=== PATIENT | male | born 1930 | race Caucasian/White ===

== ENCOUNTER → 2016-05-24 | Outpatient (CLI) | payer MEDICARE, OTHER ==
[~2016-05-24] MED LIST: REGADENOSON INJ 0.4 MG/5 ML DISP.SYRIN IV ONE
--- NOTE | 2016-05-24 21:10 | DRAGON STRESS TEST REPORT ---
Intravenous Lexiscan Cardiolite stress test using single photon emmision computerized tomography. Date of procedure: 05/24/2016 Ordering Provider: Dr. Cele Benton. Primary care physician: Dr. Quinones. Indication: Dyspnea on exertion, in a patient with coronary artery disease.. Coronary risk factors: Age, and hypertension Resting EKG: Sinus Rhythm rate nonspecific T inversion in leads 1 and aVL Stress EKG: No changes of ischemia. The patient had no chest pain or discomfort, and there were no arrhythmias seen Reason for termination: Protocol. Conclusions: Normal EKG and hemodynamic response to IV Lexiscan. Nuclear data: At rest the patient was given 14.42 millicuries of technetium 99m sestamibi injected intravenously. As per protocol rest non gated SPECT images were obtained. Subsequently the patient was given intravenous Lexiscan at a dose of 0.4 mg in 5 mL intravenously, followed by flush with normal saline. Subsequently the stress dose of 42.9 millicuries of technetium 99m sestamibi was injected intravenously. As per protocol stress gated images were obtained. Nuclear interpretation: Review of images showed that all segments of the myocardium had normal perfusion at rest, and normal perfusion post stress with IV Lexiscan. All segments of the myocardium had normal motion, contraction, and thickening by gated study. T. I D. ratio was normal at 1.03. Computer read rest, and stress left ventricular ejection fraction were 68 %, and 67 %, respectively. Conclusion: 1. There is no scintigraphic evidence of Lexiscan induced myocardial ischemia. 2. There is no scintigraphic evidence of myocardial infarction/scar. Recommendations: 1.Aggressive risk factor modification, and treating the underlying co- morbidities. 2. Would recommend a pulmonary workup for the patient's dyspnea on exertion MTDD
== END ==
LOC: RAD 06:53
PROVIDERS: ATTEND Specialist
DX: R06.09 Other forms of dyspnea (principal); I25.10 Atherosclerotic heart disease of native coronary artery without angina pectoris; I10 Essential (primary) hypertension
CPT/HCPCS: 93017; 78452; A9500; J2785; Q9969

== ENCOUNTER → 2016-09-27 | Outpatient (CLI) | payer MEDICARE ==
--- NOTE | 2016-09-27 14:02 | RADIOLOGY REPORT (SQ) ---
EXAM DESCRIPTION: U/S RETROPERITON (RENAL/AORTA) COMPLETED DATE/TIME: 09/27/2016 1:39 pm REASON FOR STUDY: ABNORMAL KIDNEY FUNCTION R94.4 ABNORMAL RESULTS OF KIDNEY FUNCTION STUDIES COMPARISON: None. TECHNIQUE: Dynamic and static grayscale images acquired of the kidneys and bladder and recorded on P ACS. Additional selected color Doppler and spectral images recorded. LIMITATIONS: None. FINDINGS: RIGHT KIDNEY: Normal size. Normal echogenicity. No solid or suspicious masses. No h ydronephrosis. Echogenic focus measuring 0.9 x 1.2 cm. LEFT KIDNEY: Normal size. Normal echogenicity. No solid or suspicious masses. No hydronephrosi s. Several small echogenic foci. BLADDER: No masses. OTHER FINDINGS: No other significant finding. IMPRESSION: POSSIBLE NONOBSTRUCTING CALCULI IN BOTH KIDNEYS. OTHERWISE UNREMARKABLE STUDY. TECHNICAL DOCUMENTATION: JOB ID: [id number] [employer]- All Rights Reserved
== END ==
LOC: RAD 12:41
PROVIDERS: ATTEND Internal Medicine
DX: R94.4 Abnormal results of kidney function studies (principal)
CPT/HCPCS: 76770

== ENCOUNTER → 2018-01-29 | Outpatient (CLI) | payer MEDICARE ==
--- NOTE | 2018-01-29 11:53 | RADIOLOGY REPORT (SQ) ---
EXAM DESCRIPTION: LUMBAR SPINE 2 VIEWS COMPLETED DATE/TIME: 01/29/2018 11:05 am REASON FOR STUDY: LOW BACK PAIN M54.5 LOW BACK PAIN COMPARISON: None. NUMBER OF VIEWS: Two views. TECHNIQUE: AP and lateral radiographic images acquired of the lumbar spine. LIMITATIONS: None. FINDINGS: MINERALIZATION: Normal. SEGMENTATION: Normal. No transitional anatomy. ALIGNMENT: Scoliosis of the lumbar spine, apex to the left. VERTEBRAE: Old remote L1 fracture, stable since the CT abdomen and pelvis examination dated 11/10/2009 . The remaining vertebra are normal in height. DISCS: Slight to mild disc space narrowing. Small to mild anterior osteophytes. Degenerative ewing es visualized lower thoracic spine. POSTERIOR ELEMENTS: Moderate lower lumbar spine facet arthrosis. Pedicles are intact. No pars defe ct or posterior arch defects. HARDWARE: None in the spine. PARASPINAL SOFT TISSUES: Normal. PELVIS: Intact as visualized. No fractures or worrisome bone lesions. SI joints intact. OTHER: Atherosclerotic changes involving the abdominal aorta. IMPRESSION: 1. Old remote L1 fracture. 2. Degenerative changes as noted above. TECHNICAL DOCUMENTATION: JOB ID: [id number] [employer]- All Rights Reserved Reading location - IP/workstation name: [facility]
--- NOTE | 2018-01-29 12:00 | RADIOLOGY REPORT (SQ) ---
EXAM DESCRIPTION: SACRUM AND COCCYX COMPLETED DATE/TIME: 01/29/2018 11:05 am REASON FOR STUDY: LOW BACK PAIN M54.5 LOW BACK PAIN COMPARISON: None. NUMBER OF VIEWS: Three views. TECHNIQUE: AP, lateral, and tilt views of the sacrum and coccyx. LIMITATIONS: None. FINDINGS: MINERALIZATION: Osteopenia. BONES: No acute fracture or dislocation. No worrisome bone lesions. SOFT TISSUES: No soft tissue swelling. No foreign body. OTHER: No other significant finding. IMPRESSION: No acute findings. TECHNICAL DOCUMENTATION: JOB ID: [id number] [employer]- All Rights Reserved Reading location - IP/workstation name: [email or web address]
--- NOTE | 2018-01-29 12:16 | RADIOLOGY REPORT (SQ) ---
EXAM DESCRIPTION: SACROILIAC JOINTS COMPLETED DATE/TIME: 01/29/2018 11:05 am REASON FOR STUDY: LOW BACK PAIN M54.5 LOW BACK PAIN COMPARISON: None. NUMBER OF VIEWS: Three views. TECHNIQUE: AP and oblique views of the sacroiliac joints. LIMITATIONS: None. FINDINGS: MINERALIZATION: Osteopenia. BONES: No acute fracture or dislocation. No worrisome bone lesions. No significant osteophytes. JOINTS: The sacroiliac joints are patent. No unusual widening, sclerosis, or fusion. SOFT TISSUES: No soft tissue swelling. No radio-opaque foreign body. OTHER: No other significant finding. IMPRESSION: No acute findings. TECHNICAL DOCUMENTATION: JOB ID: [id number] [employer]- All Rights Reserved Reading location - IP/workstation name: [email or web address]
== END ==
LOC: OD 10:21
PROVIDERS: ATTEND Internal Medicine
DX: M54.5 Low back pain (principal)
CPT/HCPCS: 72100; 72200; 72220

== ENCOUNTER → 2018-03-18 | Outpatient (CLI) | payer MEDICARE ==
[2018-03-18 11:36] LABS: HEMATOCRIT 38.1 % (37.9-51.0); HEMOGLOBIN 12.6 g/dL (13.5-17.0); MEAN CORPUSCULAR HEMOGLOBIN 30.3 pg (27.0-33.4); MEAN CORPUSCULAR VOLUME 92 fl (80-97); PLATELET COUNT 223 10^3/uL (150-450); RED BLOOD COUNT 4.15 10^6/uL (4.35-5.55); RED CELL DISTRIBUTION WIDTH 12.9 % (11.5-14.0); WHITE BLOOD COUNT 6.8 10^3/uL (4.0-10.5)
[2018-03-18 11:41] LABS: APPEARANCE,URINE CLEAR; BILIRUBIN,URINE NEGATIVE (NEGATIVE); COLOR,URINE YELLOW; GLUCOSE, URINE NEGATIVE (NEGATIVE); KETONES,URINE NEGATIVE (NEGATIVE); LEUKOCYTE ESTERASE,URINE NEGATIVE (NEGATIVE); NITRITE,URINE NEGATIVE (NEGATIVE); PROTEIN,URINE NEGATIVE (NEGATIVE); URINE SPECIFIC GRAVITY 1.011; UROBILINOGEN,URINE NEGATIVE mg/dL (<2.0)
[2018-03-18 11:57] LABS: ANION GAP 14 (5-19); BLOOD UREA NITROGEN 26 mg/dL (7-20); CALCIUM 10.3 mg/dL (8.4-10.2); CARBON DIOXIDE 28 mmol/L (22-30); CHLORIDE 99 mmol/L (98-107); GLUCOSE 109 mg/dL (75-110); POTASSIUM 5.7 mmol/L (3.6-5.0)
== END ==
LOC: OD 10:54
PROVIDERS: ATTEND Internal Medicine Nephrology
DX: I12.9 Hypertensive chronic kidney disease with stage 1 through stage 4 chronic kidney disease, or unspecified chronic kidney disease (principal); N18.3 Chronic kidney disease, stage 3 (moderate); E87.5 Hyperkalemia
CPT/HCPCS: 36415; 80048; 81001; 83735; 85027

== ENCOUNTER → 2018-03-20 | Outpatient (CLI) | payer MEDICARE | LOC: OD 09:03 | PROVIDERS: ATTEND Internal Medicine Nephrology | DX: E87.5 Hyperkalemia (principal) | CPT/HCPCS: 36415; 84132 ==

== ENCOUNTER → 2018-07-18 | Outpatient (CLI) | payer MEDICARE ==
[2018-07-18 12:05] LABS: ANION GAP 14 (5-19); BLOOD UREA NITROGEN 31 mg/dL (7-20); CALCIUM 9.8 mg/dL (8.4-10.2); CARBON DIOXIDE 26 mmol/L (22-30); CHLORIDE 99 mmol/L (98-107); GLUCOSE 94 mg/dL (75-110); POTASSIUM 4.4 mmol/L (3.6-5.0); SODIUM 138.5 mmol/L (137-145)
== END ==
LOC: OD 10:17
PROVIDERS: ATTEND Internal Medicine Nephrology
DX: I12.9 Hypertensive chronic kidney disease with stage 1 through stage 4 chronic kidney disease, or unspecified chronic kidney disease (principal); N18.3 Chronic kidney disease, stage 3 (moderate); E87.5 Hyperkalemia
CPT/HCPCS: 36415; 80048

== ENCOUNTER → 2019-01-28 | Outpatient (CLI) | payer MEDICARE ==
[2019-01-28 09:34] LABS: APPEARANCE,URINE CLEAR; BILIRUBIN,URINE NEGATIVE (NEGATIVE); COLOR,URINE STRAW; GLUCOSE, URINE NEGATIVE (NEGATIVE); KETONES,URINE NEGATIVE (NEGATIVE); LEUKOCYTE ESTERASE,URINE NEGATIVE (NEGATIVE); NITRITE,URINE NEGATIVE (NEGATIVE); PROTEIN,URINE NEGATIVE (NEGATIVE); URINE SPECIFIC GRAVITY 1.011; UROBILINOGEN,URINE NEGATIVE mg/dL (<2.0)
[2019-01-28 09:35] LABS: HEMATOCRIT 34.4 % (37.9-51.0); HEMOGLOBIN 11.6 g/dL (13.5-17.0); MEAN CORPUSCULAR HEMOGLOBIN 30.4 pg (27.0-33.4); MEAN CORPUSCULAR HGB CONC 33.8 g/dL (32.0-36.0); MEAN CORPUSCULAR VOLUME 90 fl (80-97); PLATELET COUNT 198 10^3/uL (150-450); RED BLOOD COUNT 3.82 10^6/uL (4.35-5.55); RED CELL DISTRIBUTION WIDTH 12.3 % (11.5-14.0); WHITE BLOOD COUNT 6.8 10^3/uL (4.0-10.5)
[2019-01-28 09:55] LABS: ANION GAP 11 (5-19); BLOOD UREA NITROGEN 40 mg/dL (7-20); CALCIUM 9.7 mg/dL (8.4-10.2); CARBON DIOXIDE 27 mmol/L (22-30); CHLORIDE 100 mmol/L (98-107); GLUCOSE 101 mg/dL (75-110); POTASSIUM 5.1 mmol/L (3.6-5.0)
== END ==
LOC: OD 08:59
PROVIDERS: ATTEND Physician Assistant Medical
DX: I12.9 Hypertensive chronic kidney disease with stage 1 through stage 4 chronic kidney disease, or unspecified chronic kidney disease (principal); N18.3 Chronic kidney disease, stage 3 (moderate); E87.5 Hyperkalemia
CPT/HCPCS: 36415; 80048; 81001; 85027

== ENCOUNTER → 2019-02-24 | Outpatient (CLI) | payer MEDICARE ==
[2019-02-24 09:44] LABS: ABSOLUTE EOSINOPHILS # (AUTO) 0.3 10^3/uL (0.0-0.6); ABSOLUTE LYMPHOCYTES (AUTO) 1.2 10^3/uL (0.5-4.7); ABSOLUTE MONOCYTES (AUTO) 0.8 10^3/uL (0.1-1.4); ABSOLUTE NEUT (AUTO) 4.4 10^3/uL (1.7-8.2); BASOPHILS % (AUTO) 0.4 % (0-2); EOSINOPHILS % (AUTO) 4.2 % (0-6); HEMATOCRIT 35.3 % (37.9-51.0); HEMOGLOBIN 11.7 g/dL (13.5-17.0); LYMPHOCYTES % (AUTO) 17.7 % (13-45); MEAN CORPUSCULAR HEMOGLOBIN 29.8 pg (27.0-33.4); MEAN CORPUSCULAR HGB CONC 33.2 g/dL (32.0-36.0); MEAN CORPUSCULAR VOLUME 90 fl (80-97); MONOCYTES % (AUTO) 12.2 % (3-13); PLATELET COUNT 195 10^3/uL (150-450); RED BLOOD COUNT 3.93 10^6/uL (4.35-5.55); RED CELL DISTRIBUTION WIDTH 12.8 % (11.5-14.0); SEGMENTED NEUTROPHILS % (AUTO) 65.5 % (42-78); TOTAL CELLS COUNTED % (AUTO) 100 %; WHITE BLOOD COUNT 6.8 10^3/uL (4.0-10.5)
[2019-02-24 10:13] LABS: ANION GAP 10 (5-19); BLOOD UREA NITROGEN 32 mg/dL (7-20); CALCIUM 9.6 mg/dL (8.4-10.2); CARBON DIOXIDE 27 mmol/L (22-30); CHLORIDE 103 mmol/L (98-107); GLUCOSE 106 mg/dL (75-110)
== END ==
LOC: OD 09:18
PROVIDERS: ATTEND Internal Medicine Nephrology
DX: I12.9 Hypertensive chronic kidney disease with stage 1 through stage 4 chronic kidney disease, or unspecified chronic kidney disease (principal); N18.3 Chronic kidney disease, stage 3 (moderate); I50.9 Heart failure, unspecified
CPT/HCPCS: 36415; 80048; 85025

== ENCOUNTER 2019-06-06 17:09 | Observation (INO) | payer MEDICARE ==
[2019-06-06 18:26] LABS: ABSOLUTE EOSINOPHILS # (AUTO) 0.2 10^3/uL (0.0-0.6); ABSOLUTE LYMPHOCYTES (AUTO) 1.7 10^3/uL (0.5-4.7); ABSOLUTE MONOCYTES (AUTO) 0.9 10^3/uL (0.1-1.4); ABSOLUTE NEUT (AUTO) 4.3 10^3/uL (1.7-8.2); BASOPHILS % (AUTO) 0.3 % (0-2); EOSINOPHILS % (AUTO) 2.6 % (0-6); HEMATOCRIT 33.9 % (37.9-51.0); HEMOGLOBIN 11.4 g/dL (13.5-17.0); LYMPHOCYTES % (AUTO) 24.4 % (13-45); MEAN CORPUSCULAR HEMOGLOBIN 30.5 pg (27.0-33.4); MEAN CORPUSCULAR HGB CONC 33.7 g/dL (32.0-36.0); MEAN CORPUSCULAR VOLUME 91 fl (80-97); MONOCYTES % (AUTO) 12.2 % (3-13); PLATELET COUNT 198 10^3/uL (150-450); RED BLOOD COUNT 3.74 10^6/uL (4.35-5.55); RED CELL DISTRIBUTION WIDTH 13.4 % (11.5-14.0); SEGMENTED NEUTROPHILS % (AUTO) 60.5 % (42-78); TOTAL CELLS COUNTED % (AUTO) 100 %; WHITE BLOOD COUNT 7.2 10^3/uL (4.0-10.5)
[2019-06-06 18:32] LABS: INTERNATIONAL RATION (INR) 0.97; PROTHROMBIN TIME 12.9 SEC (11.4-15.4)
[2019-06-06 18:44] LABS: ALKALINE PHOSPHATASE 70 U/L (38-126); ANION GAP 13 (5-19); ASPARTATE AMINO TRANSFERASE 26 U/L (17-59); BILIRUBIN,DIRECT 0.3 mg/dL (0.0-0.4); BILIRUBIN,TOTAL 0.4 mg/dL (0.2-1.3); BLOOD UREA NITROGEN 35 mg/dL (7-20); CARBON DIOXIDE 25 mmol/L (22-30); CHLORIDE 97 mmol/L (98-107); GLUCOSE 109 mg/dL (75-110); POTASSIUM 4.5 mmol/L (3.6-5.0)
--- NOTE | 2019-06-06 20:00 | ER Document Report ---
ED General - General Chief Complaint: Unresponsive Stated Complaint: Unresponsive Time Seen by Provider: 06/06/19 19:14 Primary Care Provider: Nazia RAMIREZ MD [ACTIVE STAFF] - Follow up as needed TRAVEL OUTSIDE OF THE [place] IN LAST 30 DAYS: No - HPI Notes: Mr. Resendez is a 88-year-old male followed by Dr. Quinones with a history of CAD and recurrent episodes of unexplained hypotension as well as some chronic renal insufficiency with a chief complaint of transient altered mental status. The patient's son said around 4 PM he came into the house and found the patient sit ting in a chair unresponsive and he did not appear to be breathing. He listened for heartbeat and could not hear her heartbeat and so he initiated CPR while patient was sitting in a chair. He called EMS and prior to arrival of EMS the patient made a deep gasping sound and resume spontaneous respirations and he had a pulse and a heartbeat when EMS arrived. He was said to be confused and in a bradycardic rhythm and diaphoretic. They gave IV fluids and transported the patient to the emergency department. By the time of arrival here the patient was back to his normal baseline and had no specific complaints. Patient at this time denies any headache, shortness of breath, nausea or vomiting or chest pain. He says he "feels just fine". Patient reports that he had had "a big shot of whiskey" this afternoon but denies intoxication. Patient has a prior history of CAD with stent placement several years ago. He denies cigarette smoking. He has had a previous cholecystectomy. He denies any history of stroke or TIA. - Related Data Allergies/Adverse Reactions: No Known Allergies Allergy (Unverified 11/05/11 17:33) Past Medical History - General Information source: Patient, Relative, Emergency Med Personnel - Social History Smoking Status: Never Smoker Frequency of alcohol use: Social Drug Abuse: None Lives with: Family Family History: CAD Patient has suicidal ideation: No Patient has homicidal ideation: No - Past Medical History Cardiac Medical History: Reports: Hx Coronary Artery Disease, Hx Hypercholesterolemia - ABOUT 10 YEARS, Hx Hypertension - ABOUT 25 YEARS Pulmonary Medical History: Denies: Hx Tuberculosis GI Medical History: Reports: Hx Ulcer Psychiatric Medical History: Reports: Hx Depression - DX 12 YEARS AGO Past Surgical History: Reports: Hx Cardiac Catheterization - 2 x stents placed, Hx Cholecystectomy. Denies: Hx Adenoidectomy, Hx Pacemaker - Immunizations Hx Pneumococcal Vaccination: 03/07/11 Review of Systems - Review of Systems Notes: Constitutional: Negative for fever. HENT: Negative for sore throat. Eyes: Negative for visual changes. Cardiovascular: Negative for chest pain. Respiratory: Negative for shortness of breath. Gastrointestinal: Negative for abdominal pain, vomiting or diarrhea. Genitourinary: Negative for dysuria. Musculoskeletal: Negative for back pain. Skin: Negative for rash. Neurological: Negative for headaches, weakness or numbness. 10 point ROS negative except as marked above and in HPI. Physical Exam - Vital signs Vitals: Temp Resp BP Pulse Ox 97.6 F 22 H 108/68 99 06/06/19 17:15 06/06/19 17:15 06/06/19 17:15 06/06/19 17:15 - Notes Notes: GENERAL: Well-developed well-nourished appearing in no acute distress. SKIN: Good turgor no rashes. HEAD: Normocephalic atraumatic. EYES: PERRLA. EOMI. Conjunctivae and sclerae clear. EARS: CANALS AND TMS CLEAR. NOSE: CLEAR. MOUTH: Moist mucosa. Good dentition. No stridor or edema. No drooling. NECK: Supple. No masses or thyromegaly. No adenopathy. Carotids 2+ without bruits. No JVD. BACK: Symmetrical without tenderness. CHEST: Respirations unlabored. Breath sounds clear and symmetrical. HEART: Regular rhythm. No murmur gallop or rub. ABDOMEN: Obese. Soft nontender without masses, organomegaly or rebound. Bowel sounds normally active. No bruits. GENITALIA: Deferred. EXTREMITIES: No edema. No calf tenderness. Cap refill less than 1.5 seconds. Dorsalis pedis and posterior tibial pulses 3+ and symmetrical. NEUROLOGICAL: GCS 15. Alert and oriented x3. Fluent speech. Cranial nerves II through XII intact. Sensorimotor and cerebellar normal. Normal tone. PSYCHIATRIC: Appropriate affect. Course - Re-evaluation Re-evalutation: 06/06/19 21:17 Troponin is normal. Chest x-ray normal. Patient remained stable with no complaints. Case discussed with Dr. Alves on-call for Dr. Quinones and he is going to admit the patient to telemetry. He is requested to get a noncontrast head CT and also consultation from Dr. Wiggins (cardiology). - Vital Signs Vital signs: Temp Pulse Resp BP Pulse Ox 97.6 F 20 124/86 H 97 06/06/19 17:15 06/06/19 21:00 06/06/19 19:41 06/06/19 21:00 - Laboratory Result Diagrams: 06/06/19 17:20 06/06/19 17:20 Laboratory results interpreted by me: 06/06/19 06/06/19 17:20 17:20 RBC 3.74 L Hgb 11.4 L Hct 33.9 L Sodium 135.0 L Chloride 97 L BUN 35 H Creatinine 1.87 H Est GFR ( Amer) 42 L Est GFR (MDRD) Non-Af 34 L - EKG Interpretation by Me Additional EKG results interpreted by me: 06/06/19 20:01 Twelve-lead EKG from 1718 hrs. as reviewed by me contemporaneously. This demonstrates a rate of 70 with a normal sinus rhythm and first-degree AV block. Patient has a left bundle branch block present which is believed to be old. He has no prior tracing here for comparison. Discharge - Discharge Clinical Impression: Transient altered mental status, Bradycardia Condition: Stable Disposition: ADMITTED INPATIENT Admitting Provider: [facility] Admitted: Telemetry Referrals: Nazia RAMIREZ MD [ACTIVE STAFF] - Follow up as needed
--- NOTE | 2019-06-06 20:24 | RADIOLOGY REPORT (SQ) ---
XR CHEST 1 VIEW EXAM DATE: 06/06/2019 7:53 PM [employer] HISTORY: Hypotension. COMPARISON: None. FINDINGS: Normal heart size without pulmonary edema. No focal consolidation is identified. No pleural effusions or pneumothorax. No acute bony findings are seen. IMPRESSION: No evidence of acute cardiopulmonary disease.
[2019-06-06] MEDS ORDERED: ACETAMINOPHEN 325 MG TABLET PO PRN (21:14)
[2019-06-06] MEDS ORDERED: NORMAL SALINE 1000 ML 1,000 ML IV PRN (21:14)
[2019-06-06] MEDS: FAMOTIDINE 20 MG TABLET PO SCH (21:37)
--- NOTE | 2019-06-06 21:59 | RADIOLOGY REPORT (SQ) ---
EXAM DESCRIPTION: CT HEAD WITHOUT IV CONTRAST COMPLETED DATE/TME: 06/06/2019 21:14 CLINICAL HISTORY: 88 years, Male, transient AMS COMPARISON: None. TECHNIQUE: Noncontrast CT of the head was acquired. Coronal and sagittal reformations were created. Images stored on PACS. All CT scanners at this facility use dose modulation, iterative reconstruction, and/or weight based dosing when appropriate to reduce radiation dose to as low as reasonably achievable (ALARA). [facility]: Dose Right [facility]: CareDose [facility]: Dose Right [facility]: Teradose 4D [facility]: [employer] LIMITATIONS: None. FINDINGS: Evaluation of the brain parenchyma reveals mild periventricular and patchy subcortical white matter low attenuation. No acute intracranial hemorrhage, mass effect, or extra-axial fluid is seen. Ventricles and sulcal spaces are mildly moderately enlarged. Globes and orbits show no acute abnormality. Mild mucosal thickening is noted about the right maxillary antrum with associated hyperostosis, indicating chronic maxillary sinusitis. Additional mild opacity is noted about the ethmoidal air cells. Remaining paranasal sinuses and mastoid air cells are clear. No depressed skull fractures. IMPRESSION: No acute intracranial abnormality. Mild chronic microvascular ischemic change with [id number] generalized atrophy. TECHNICAL DOCUMENTATION: Quality ID # [id number]: Final reports with documentation of one or more dose reduction techniques (e.g., Automated exposure control, adjustment of the mA and/or kV according to patient size, use of iterative reconstruction technique) copyright 2010 [employer]- All Rights Reserved
[2019-06-06 22:24] LABS: ANION GAP 14 (5-19); BLOOD UREA NITROGEN 36 mg/dL (7-20); CALCIUM 9.4 mg/dL (8.4-10.2); CARBON DIOXIDE 23 mmol/L (22-30); CHLORIDE 98 mmol/L (98-107); CREATINE KINASE 77 U/L (55-170); GLUCOSE 96 mg/dL (75-110); POTASSIUM 5.1 mmol/L (3.6-5.0)
[2019-06-06 23:19] LABS: CREATINE KINASE MB 2.22 ng/mL (<4.55); TROPONIN I 0.016 ng/mL
[2019-06-07 00:28] LABS: APPEARANCE,URINE CLEAR; BILIRUBIN,URINE NEGATIVE (NEGATIVE); COLOR,URINE YELLOW; GLUCOSE, URINE NEGATIVE (NEGATIVE); KETONES,URINE NEGATIVE (NEGATIVE); LEUKOCYTE ESTERASE,URINE NEGATIVE (NEGATIVE); NITRITE,URINE NEGATIVE (NEGATIVE); PROTEIN,URINE NEGATIVE (NEGATIVE); UROBILINOGEN,URINE NEGATIVE mg/dL (<2.0)
[2019-06-07 05:08] LABS: ABSOLUTE EOSINOPHILS # (AUTO) 0.2 10^3/uL (0.0-0.6); ABSOLUTE LYMPHOCYTES (AUTO) 1.4 10^3/uL (0.5-4.7); ABSOLUTE MONOCYTES (AUTO) 0.8 10^3/uL (0.1-1.4); ABSOLUTE NEUT (AUTO) 4.4 10^3/uL (1.7-8.2); BASOPHILS % (AUTO) 0.3 % (0-2); EOSINOPHILS % (AUTO) 2.3 % (0-6); HEMATOCRIT 34.4 % (37.9-51.0); HEMOGLOBIN 11.7 g/dL (13.5-17.0); LYMPHOCYTES % (AUTO) 20.5 % (13-45); MEAN CORPUSCULAR HEMOGLOBIN 30.3 pg (27.0-33.4); MEAN CORPUSCULAR HGB CONC 34.1 g/dL (32.0-36.0); MEAN CORPUSCULAR VOLUME 89 fl (80-97); PLATELET COUNT 179 10^3/uL (150-450); RED BLOOD COUNT 3.87 10^6/uL (4.35-5.55); RED CELL DISTRIBUTION WIDTH 13.4 % (11.5-14.0); SEGMENTED NEUTROPHILS % (AUTO) 64.9 % (42-78); TOTAL CELLS COUNTED % (AUTO) 100 %; WHITE BLOOD COUNT 6.8 10^3/uL (4.0-10.5)
[2019-06-07 05:41] LABS: CREATINE KINASE MB 2.12 ng/mL (<4.55); TROPONIN I 0.021 ng/mL
[2019-06-07] MEDS ORDERED: LOSARTAN POTASSIUM 50 MG TABLET PO ONE (06:45)
[2019-06-07] MEDS ORDERED: (PENDING PHARMACY ID) (Duloxetine Hcl [Duloxetine Hcl] 60 MG) PO SCH (10:00)
[2019-06-07] MEDS ORDERED: LOSARTAN POTASSIUM 50 MG TABLET PO SCH (10:00)
[2019-06-07] MEDS ORDERED: (PENDING PHARMACY ID) (Buspirone Hcl [Buspirone Hcl] 15 MG) PO SCH (10:00)
[2019-06-07] MEDS: DULOXETINE HCL 30 MG CAPSULE.DR PO SCH (10:45)
[2019-06-07] MEDS: FAMOTIDINE 20 MG TABLET PO SCH ×2 (10:45→21:27)
[2019-06-07] MEDS: TAMSULOSIN HCL 0.4 MG CAP.SR.24H PO SCH (10:45)
[2019-06-07] MEDS: BUSPIRONE HCL 10 MG TABLET PO SCH ×2 (10:45→17:31)
[2019-06-07] MEDS: CLOPIDOGREL BISULFATE 75 MG TABLET PO SCH (10:45)
[2019-06-07] MEDS: ENOXAPARIN SODIUM INJ 30 MG/0.3 ML DISP.SYRIN SUBCUT SCH (10:46)
[2019-06-07] MEDS: ISOSORBIDE MONONITRATE 30 MG TAB.ER.24H PO SCH (10:46)
[2019-06-07 11:25] LABS: CREATINE KINASE MB 1.98 ng/mL (<4.55); TROPONIN I 0.017 ng/mL
--- NOTE | 2019-06-07 11:43 | PDOC H&P ---
History of Present Illness Admission Date/PCP: 06/06/19 22:03 SAFIA HUMMEL MD Patient complains of: Unresponsive History of Present Illness: LESA COLÓN is a 88 year old male This is a 88-year-old male patient of Dr. Hummel with the history of the cor onary artery disease status post stent placement with a history of chronic kidney disease history of the hypertensions hyperlipidemia patient is currently see a Dr. Villagomez as outpatients for this coronary artery disease and also see Dr. Elkins for chronic kidney disease and adjusting several medications due to the blood pressure issues running low brought to the emergency department by EMS. Adding to the patient and the son at 4:00 yesterday patients son came in the house and found the patient sitting in the chair and unresponsive and he did not appear to be breathing and he listened to heartbeat and could not hear it so he initiated the Cpr while patient was sitting in the chair and he called the EMS. Prior to arrival the EMS the patient's made a deep grasping sound and resume spontaneous respirations and he had a pulse and a heartbeat when the EMS arrived He was said to be confused in a bradycardic rhythm and diaphoretic and given IV fluid and transported the patient to the emergency department by the time patient arrival in emergency department patient was back to the normal baseline having no specific complaints In the emergency department the physician's noticed the patient was bradycardic and decided to admit in the hospitals for further evaluations Patient CT head was all negative's other blood work is all stable Discussed with extensively with the patient and the son on the bedside and patient's thought like patient was sleeping deeply Patient's also using the CPAP Past Medical History Cardiac Medical History: Reports: Coronary Artery Disease, Hyperlipidema - ABOUT 10 YEARS, Hypertension - ABOUT 25 YEARS Pulmonary Medical History: Reports: Sleep Apnea Denies: Tuberculosis Renal/ Medical History: Reports: Chronic Kidney Disease Psychiatric Medical History: Reports: Depression - DX 12 YEARS AGO Past Surgical History Past Surgical History: Reports: Cardiac Catheterization - 2 x stents placed, Cholecystectomy Denies: Pacemaker Social History Lives with: Family Smoking Status: Never Smoker Electronic Cigarette use?: No Frequency of Alcohol Use: Rare Hx Recreational Drug Use: No Drugs: None Hx Prescription Drug Abuse: No - Advance Directive Resuscitation Status: Full Code Family History Family History: Reviewed & Not Pertinent, CAD Parental Family History Reviewed: Yes Children Family History Reviewed: Yes Sibling(s) Family History Reviewed.: Yes Medication/Allergy Home Medications: Aspirin [Aspirin 81 mg Chewable Tablet] 81 mg PO QHS 11/05/11 Clopidogrel Bisulfate [Plavix 75 Mg Tablet] 75 mg PO DAILY 11/05/11 Metoprolol Succinate [Toprol XL 100 mg Tablet] 100 mg PO DAILY 11/06/11 Pitavastatin Calcium [Livalo] 2 mg PO QHS 11/06/11 Buspirone HCl 15 mg PO BID 06/07/19 Duloxetine HCl 60 mg PO DAILY 06/07/19 Furosemide [Lasix 20 mg Tablet] 20 mg PO DAILY 06/07/19 Isosorbide Mononitrate [Imdur 30 mg Tablet.er] 30 mg PO DAILY 06/07/19 Olmesartan Medoxomil 40 mg PO DAILY 06/07/19 [place]-3/Dha/Epa/Fish Oil [Fish Oil 1,000 mg Softgel] 1,000 mg PO QHS 06/07/19 Tamsulosin HCl [Flomax] 0.4 mg PO DAILY 06/07/19 Allergies/Adverse Reactions: No Known Allergies Allergy (Unverified 11/05/11 17:33) Review of Systems Constitutional: ABSENT: chills, fever(s), headache(s), weight gain, weight loss Eyes: ABSENT: visual disturbances Ears: ABSENT: hearing changes Cardiovascular: ABSENT: chest pain, dyspnea on exertion, edema, orthropnea, palpitations Respiratory: ABSENT: cough, hemoptysis Gastrointestinal: ABSENT: abdominal pain, constipation, diarrhea, hematemesis, hematochezia, nausea, vomiting Genitourinary: ABSENT: dysuria, hematuria Musculoskeletal: ABSENT: joint swelling Integumentary: ABSENT: rash, wounds Neurological: ABSENT: abnormal gait, abnormal speech, confusion, dizziness, focal weakness, syncope Psychiatric: ABSENT: anxiety, depression, homidical ideation, suicidal ideation Endocrine: ABSENT: cold intolerance, heat intolerance, menstrual abnormalities, polydipsia, polyuria Hematologic/Lymphatic: ABSENT: easy bleeding, easy bruising, lymphadenopathy Physical Exam Vital Signs: Temp Pulse Resp BP Pulse Ox 97.2 F 91 17 112/57 L 93 06/07/19 08:30 06/07/19 08:30 06/07/19 08:30 06/07/19 08:30 06/07/19 08:30 Intake & Output 06/06/19 06/07/19 06/08/19 06:59 06:59 06:59 Intake Total 0 1068 Output Total 500 540 Balance -500 528 Weight 99.7 kg General appearance: PRESENT: no acute distress, well-developed, well-nourished Head exam: PRESENT: atraumatic, normocephalic Eye exam: PRESENT: conjunctiva pink, EOMI, PERRLA. ABSENT: scleral icterus Ear exam: PRESENT: normal external ear exam Mouth exam: PRESENT: moist, tongue midline Neck exam: PRESENT: full ROM. ABSENT: carotid bruit, JVD, lymphadenopathy, thyromegaly Respiratory exam: PRESENT: clear to auscultation braden Cardiovascular exam: PRESENT: RRR. ABSENT: diastolic murmur, rubs, systolic murmur Pulses: PRESENT: normal dorsalis pedis pul, +2 pedal pulses bilateral Vascular exam: PRESENT: normal capillary refill GI/Abdominal exam: PRESENT: normal bowel sounds, soft. ABSENT: distended, guarding, mass, organolmegaly, rebound, tenderness Rectal exam: PRESENT: deferred Neurological exam: PRESENT: alert, awake, oriented to person, oriented to place, oriented to time, oriented to situation, CN II-XII grossly intact. ABSENT: motor sensory deficit Psychiatric exam: PRESENT: appropriate affect, normal mood. ABSENT: homicidal ideation, suicidal ideation Skin exam: PRESENT: dry, intact, warm. ABSENT: cyanosis, rash Results Laboratory Results: 06/07/19 04:03 06/06/19 21:45 06/06/19 06/06/19 06/06/19 17:20 17:20 21:45 WBC 7.2 RBC 3.74 L Hgb 11.4 L Hct 33.9 L MCV 91 MCH 30.5 MCHC 33.7 RDW 13.4 Plt Count 198 Seg Neutrophils % 60.5 Sodium 135.0 L 134.6 L Potassium 4.5 5.1 H Chloride 97 L 98 Carbon Dioxide 25 23 Anion Gap 13 14 BUN 35 H 36 H Creatinine 1.87 H 1.57 H Est GFR ( Amer) 42 L 51 L Glucose 109 96 Calcium 9.0 9.4 Magnesium Total Bilirubin 0.4 AST 26 Alkaline Phosphatase 70 Total Protein 7.0 Albumin 4.0 TSH Urine Color Urine Appearance Urine pH Ur Specific [place] Urine Protein Urine Glucose (UA) Urine Ketones Urine Blood Urine Nitrite Ur Leukocyte Esterase Urine WBC (Auto) Urine RBC (Auto) 06/06/19 06/07/19 06/07/19 23:50 04:03 04:03 WBC 6.8 RBC 3.87 L Hgb 11.7 L Hct 34.4 L MCV 89 MCH 30.3 MCHC 34.1 RDW 13.4 Plt Count 179 Seg Neutrophils % 64.9 Sodium Potassium Chloride Carbon Dioxide Anion Gap BUN Creatinine Est GFR ( Amer) Glucose Calcium Magnesium 2.0 Total Bilirubin AST Alkaline Phosphatase Total Protein Albumin TSH Urine Color YELLOW Urine Appearance CLEAR Urine pH 5.0 Ur Specific [place] 1.010 Urine Protein NEGATIVE Urine Glucose (UA) NEGATIVE Urine Ketones NEGATIVE Urine Blood NEGATIVE Urine Nitrite NEGATIVE Ur Leukocyte Esterase NEGATIVE Urine WBC (Auto) 2 Urine RBC (Auto) 1 06/07/19 04:03 WBC RBC Hgb Hct MCV MCH MCHC RDW Plt Count Seg Neutrophils % Sodium Potassium Chloride Carbon Dioxide Anion Gap BUN Creatinine Est GFR ( Amer) Glucose Calcium Magnesium Total Bilirubin AST Alkaline Phosphatase Total Protein Albumin TSH 3.19 Urine Color Urine Appearance Urine pH Ur Specific [place] Urine Protein Urine Glucose (UA) Urine Ketones Urine Blood Urine Nitrite Ur Leukocyte Esterase Urine WBC (Auto) Urine RBC (Auto) 06/06/19 06/06/19 06/06/19 20:07 21:45 21:45 Creatine Kinase 77 CK-MB (CK-2) 2.22 Troponin I < 0.012 0.016 06/07/19 06/07/19 06/07/19 04:03 04:03 09:53 Creatine Kinase 75 67 CK-MB (CK-2) 2.12 Troponin I 0.021 06/07/19 09:53 Creatine Kinase CK-MB (CK-2) 1.98 Troponin I 0.017 Impressions: Chest X-Ray 06/06/19 19:53 IMPRESSION: No evidence of acute cardiopulmonary disease. Head CT 06/06/19 21:14 IMPRESSION: No acute intracranial abnormality. Mild chronic microvascular ischemic change with [id number] generalized atrophy. TECHNICAL DOCUMENTATION: Quality ID # [id number]: Final reports with documentation of one or more dose reduction techniques (e.g., Automated exposure control, adjustment of the mA and/or kV according to patient size, use of iterative reconstruction technique) copyright 2011 [employer]- All Rights Reserved Assessment & Plan - Diagnosis (1) Altered mental status Qualifiers: Altered mental status type: unspecified Qualified Code(s): R41.82 - Altered mental status, unspecified Is this a current diagnosis for this admission?: Yes Plan: We will get the ABG I think patients probably in the deep sleep but not sure about this bradycardic events we will consult the cardiology continuous telemetry monitoring and hold the beta-kellee (2) Coronary artery disease Qualifiers: Coronary Disease-Associated Artery/Lesion type: [place] artery Associated angina: without angina Is this a current diagnosis for this admission?: Yes Plan: Out acute coronary syndromes (3) Chronic kidney disease Qualifiers: Chronic kidney disease stage: stage 3 (moderate) Qualified Code(s): N18.3 - Chronic kidney disease, stage 3 (moderate) Is this a current diagnosis for this admission?: Yes Plan: all stable (4) Hypertension Qualifiers: Hypertension type: essential hypertension Qualified Code(s): I10 - Essential (primary) hypertension Is this a current diagnosis for this admission?: Yes Plan: We hold the beta-kellee due to the bradycardia with continuous monitoring with telemetry continues on losartan (5) Sleep apnea Qualifiers: Sleep apnea type: unspecified type Qualified Code(s): G47.30 - Sleep apnea, unspecified Is this a current diagnosis for this admission?: Yes Plan: Uses CPAP (6) Bradycardia Is this a current diagnosis for this admission?: Yes Plan: Check a TSH Hold the beta-kellee - Time Time Spent: 30 to 50 Minutes Medications reviewed and adjusted accordingly: Yes Anticipated discharge: Home with Homehealth, Other Within: Other - Inpatient Certification Based on my medical assessment, after consideration of the patient's comorbidities, presenting symptoms, or acuity I expect that the services needed warrant INPATIENT care.: Yes I certify that my determination is in accordance with my understanding of Medicare's requirements for reasonable and necessary INPATIENT services [42 CFR 412.3e].: Yes Medical Necessity: Significant Comorbidiites Make Outpatient Treatment Too Risky, Need Close Monitoring Due to Risk of Patient Decompensation, Need For Continuous Telemetry Monitoring Post Hospital Care: D/C [employer] Sales Associate Documentation - Plan Summary Plan Summary: The patient in IMCU Discussed with the patient and the son and the family and the bedside Continues to monitor Patient is currently is a full code
[2019-06-07] MEDS: LOSARTAN POTASSIUM 50 MG TABLET PO SCH (17:31)
--- NOTE | 2019-06-07 21:12 | PDOC CONSULTATION ---
Consultation-Blank Consultation: CARDIOLOGY CONSULTATION by Dr. Cele Benton on 01/06/2019. Patient seen at 1:30 PM 60 minutes spent as patient more than 50% of time spent in direct patient care. REASON FOR CONSULTATION: Assessment of patient with history of coronary artery disease status post brief CPR by son. CONSULT REQUESTING PHYSICIAN:: Dr. Shay Alves HISTORY OF PRESENT ILLNESS: The patient's son states that when he went to see his father the father was sitting in a chair with his face down and was not breathing and he said that he listen to his heart although he did not feel for a pulse. He said he put his urine to the chest wall but there was no heart sounds. He did a brief CPR and called the paramedics. He also clearly states that he found his father's head slumped on the chest and when he lifted his the chin up and straighten the patient's neck the patient had a explosive inspiration and subsequently started breathing on his own. When the EMT came the patient was bradycardic and was slightly confused and was given fluids and at present the patient is awake alert oriented x3. There is no fecal or urinary incontinence. There is no witnessed seizure activity. There is no focal deficits. The patient had no chest pain or discomfort. There was no shortness of breath or palpitations. At present the patient is awake alert oriented x3 with no focal deficits. Past Medical History Cardiac Medical History: Reports: Coronary Artery Disease, Hyperlipidema - ABOUT 10 YEARS, Hypertension - ABOUT 25 YEARS in 2006 he had 2 stents in the coronary arteries. He has no anginal symptoms. His last stress test was positive for reversible ischemia in the inferior wall but the patient's renal function precluded cardiac catheterization and patient was treated medically. The patient has not had any anginal symptoms since a long time. Pulmonary Medical History: Reports: Sleep Apnea Denies: Tuberculosis Renal/ Medical History: Reports: Chronic Kidney Disease stage III. Psychiatric Medical History: Reports: Depression - DX 12 YEARS AGO ENDOCRINE: There is no history of diabetes mellitus or thyroid disease. [employer] G[employer]ZER: There is no TIA or CVA. There is no headaches migraines or seizures. PULMONARY: There is no asthma or COPD. The patient does have a history of sleep apnea and uses CPAP. Past Surgical History Past Surgical History: Reports: Cardiac Catheterization - 2 x stents placed, Cholecystectomy Denies: Pacemaker Social History Lives with: Family Smoking Status: Never Smoker Electronic Cigarette use?: No Frequency of Alcohol Use: Rare Hx Recreational Drug Use: No Drugs: None Hx Prescription Drug Abuse: No - Advance Directive Resuscitation Status: Full Code. The patient's son is his surrogate healthcare decision maker. Family History Family History: Reviewed & Not Pertinent, CAD Parental Family History Reviewed: Yes Children Family History Reviewed: Yes Sibling(s) Family History Reviewed.: Yes Medication/Allergy Home Medications: Aspirin [Aspirin 81 mg Chewable Tablet] 81 mg PO QHS 11/05/11 Clopidogrel Bisulfate [Plavix 75 Mg Tablet] 75 mg PO DAILY 11/05/11 Metoprolol Succinate [Toprol XL 100 mg Tablet] 100 mg PO DAILY 11/06/11 Pitavastatin Calcium [Livalo] 2 mg PO QHS 11/06/11 Buspirone HCl 15 mg PO BID 06/07/19 Duloxetine HCl 60 mg PO DAILY 06/07/19 Furosemide [Lasix 20 mg Tablet] 20 mg PO DAILY 06/07/19 Isosorbide Mononitrate [Imdur 30 mg Tablet.er] 30 mg PO DAILY 06/07/19 Olmesartan Medoxomil 40 mg PO DAILY 06/07/19 [place]-3/Dha/Epa/Fish Oil [Fish Oil 1,000 mg Softgel] 1,000 mg PO QHS 06/07/19 Tamsulosin HCl [Flomax] 0.4 mg PO DAILY 06/07/19 Allergies/Adverse Reactions: No Known Allergies Allergy (Unverified 11/05/11 17:33) Current Medications Generic Name Dose Route Start Last Admin Trade Name Freq PRN Reason Stop Dose Admin Acetaminophen 650 mg 06/06/19 21:14 Tylenol 325 Mg Tablet PO 07/06/19 21:13 Q4HP PRN FOR PAIN OR TEMP Aspirin 81 mg 06/07/19 22:00 06/07/19 21:26 Aspirin 81 Mg Chewable Tablet PO 07/07/19 21:59 81 mg QHS SEBASTIAN Administration Atorvastatin Calcium 10 mg 06/07/19 22:00 06/07/19 21:26 Lipitor 10 Mg Tablet PO 07/07/19 21:59 10 mg QHS SEBASTIAN Administration Buspirone HCl 15 mg 06/07/19 10:00 06/07/19 17:31 Buspar 10 Mg Tablet PO 07/07/19 09:59 15 mg BID SEBASTIAN Administration Clopidogrel Bisulfate 75 mg 06/07/19 10:00 06/07/19 10:45 Plavix 75 Mg Tablet PO 07/07/19 09:59 75 mg DAILY SEBASTIAN Administration Duloxetine HCl 60 mg 06/07/19 10:00 06/07/19 10:45 Cymbalta 30 Mg Capsule.Dr PO 07/07/19 09:59 60 mg DAILY SEBASTIAN Administration Enoxaparin Sodium 30 mg 06/07/19 10:00 06/07/19 10:46 Lovenox Inj 30 Mg/0.3 Ml Disp.Syrin SUBCUT 07/07/19 09:59 30 mg DAILY SEBASTIAN Administration Famotidine 20 mg 06/06/19 22:00 06/07/19 21:27 Pepcid 20 Mg Tablet PO 07/06/19 21:59 20 mg Q12 SEBASTIAN Administration Isosorbide Mononitrate 30 mg 06/07/19 10:00 06/07/19 10:46 Imdur 30 Mg Tablet.Er PO 07/07/19 09:59 30 mg DAILY SEBASTIAN Administration Losartan Potassium 50 mg 06/07/19 18:00 06/07/19 17:31 Cozaar 50 Mg Tablet PO 07/07/19 17:59 50 mg BID SEBASTIAN Administration Tamsulosin HCl 0.4 mg 06/07/19 10:00 06/07/19 10:45 Flomax 0.4 Mg Cap.Sr PO 07/07/19 09:59 0.4 mg DAILY SEBASTIAN Administration Discontinued Medications Generic Name Dose Route Start Last Admin Trade Name Freq PRN Reason Stop Dose Admin Sodium Chloride 1,000 mls @ 60 mls/hr 06/06/19 21:14 06/07/19 11:25 Nacl 0.9% 1000 Ml Iv Soln IV 07/06/19 21:13 Infused CONTINUOUS PRN Infusion THIS MED IS NOT "PRN" Losartan Potassium 50 mg 06/07/19 10:00 Cozaar 50 Mg Tablet PO 07/07/19 09:59 BID SEBASTIAN Losartan Potassium 50 mg 06/07/19 06:45 06/07/19 06:48 Cozaar 50 Mg Tablet PO 06/07/19 06:46 50 mg NOW ONE Administration Review of Systems Constitutional: ABSENT: chills, fever(s), headache(s), weight gain, weight loss Eyes: ABSENT: visual disturbances Ears: ABSENT: hearing changes Cardiovascular: ABSENT: chest pain, dyspnea on exertion, edema, orthropnea, palpitations Respiratory: ABSENT: cough, hemoptysis Gastrointestinal: ABSENT: abdominal pain, constipation, diarrhea, hematemesis, hematochezia, nausea, vomiting Genitourinary: ABSENT: dysuria, hematuria Musculoskeletal: ABSENT: joint swelling Integumentary: ABSENT: rash, wounds Neurological: ABSENT: abnormal gait, abnormal speech, confusion, dizziness, focal weakness, syncope Psychiatric: ABSENT: anxiety, depression, homidical ideation, suicidal ideation Endocrine: ABSENT: cold intolerance, heat intolerance, menstrual abnormalities, polydipsia, polyuria Hematologic/Lymphatic: ABSENT: easy bleeding, easy bruising, lymphadenopathy PHYSICAL EXAMINATION: The the patient is mildly obese. In no acute distress. Selected Entries 06/07/19 12:46 Temperature 98.1 F Temperature Oral Source Pulse Rate 94 Respiratory 12 Rate Blood Pressure 112/77 Blood Pressure 88 Mean BP Location Right Arm BP Position Supine O2 Sat by Pulse 91 L Oximetry Oxygen Delivery Room Air Method HEAD: Is atraumatic normocephalic. EYES: Pupils are equal round regular reactive light accommodation. Extraocular movements are normal. There is no conjunctival pallor. There is no scleral icterus. EARS: External auditory canals are clear. The tympanic membranes are intact. NOSE: There is no deviated nasal septum. There is no inflammation of the inflamed nasal mucous membrane. MOUTH: Mucous membranes of mouth are moist. Tongue is moist. There is no ulcers. THROAT: There is no redness of the oropharynx. There is no exudates. SKIN: There is no skin rashes. The skin no skin lesions. There is no petechia or ecchymosis. NECK: Is supple. There is no JVD. Carotids are equal there is no bruit there is no lymphadenopathy. There is no goiter. There is no accessory muscles of respiration use. Trachea central. LUNGS: Is clear to auscultation percussion without any rhonchi rales or wheezing. There is no chest wall tenderness. HEART: S1-S2 is heard. There is murmur of aortic stenosis heard with preserved A2. There is questionable faint aortic regurgitation murmur. There is no thrill felt in the aortic area. There is no S3 gallop. There is no S4 gallop. There is systolic murmur at the left sternal border and the apex there is no rub. ABDOMEN: Is mildly obese. Nontender. There is no paraspinal megaly. Bowel sounds are well heard. EXTREMITIES femorals are well felt. There is no femoral bruits. Leg pulses are well felt. There is no pedal edema. There is no DVT or cellulitis. There is no cyanosis or clubbing [employer]: Patient is conscious awake alert oriented x3 with no focal deficits. PSYCHIATRIC: Patient judgment insight are intact. His affect is normal. Labs- All tests 24 hr 06/06/19 06/06/19 06/06/19 21:45 21:45 23:50 WBC RBC Hgb Hct MCV MCH MCHC RDW Plt Count Lymph % (Auto) Wells % (Auto) Eos % (Auto) Baso % (Auto) Absolute Neuts (auto) Absolute Lymphs (auto) Absolute Monos (auto) Absolute Eos (auto) Absolute Basos (auto) Seg Neutrophils % Sodium 134.6 L Potassium 5.1 H Chloride 98 Carbon Dioxide 23 Anion Gap 14 BUN 36 H Creatinine 1.57 H Est GFR ( Amer) 51 L Est GFR (MDRD) Non-Af 42 L Glucose 96 Calcium 9.4 Magnesium Creatine Kinase 77 CK-MB (CK-2) 2.22 Troponin I 0.016 TSH Urine Color YELLOW Urine Appearance CLEAR Urine pH 5.0 Ur Specific Stamps 1.010 Urine Protein NEGATIVE Urine Glucose (UA) NEGATIVE Urine Ketones NEGATIVE Urine Blood NEGATIVE Urine Nitrite NEGATIVE Urine Bilirubin NEGATIVE Urine Urobilinogen NEGATIVE Ur Leukocyte Esterase NEGATIVE Urine WBC (Auto) 2 Urine RBC (Auto) 1 U Hyaline Cast (Auto) 12 Urine Mucus (Auto) RARE Urine Ascorbic Acid NEGATIVE 06/07/19 06/07/19 06/07/19 04:03 04:03 04:03 WBC 6.8 RBC 3.87 L Hgb 11.7 L Hct 34.4 L MCV 89 MCH 30.3 MCHC 34.1 RDW 13.4 Plt Count 179 Lymph % (Auto) 20.5 Wells % (Auto) 12.0 Eos % (Auto) 2.3 Baso % (Auto) 0.3 Absolute Neuts (auto) 4.4 Absolute Lymphs (auto) 1.4 Absolute Monos (auto) 0.8 Absolute Eos (auto) 0.2 Absolute Basos (auto) 0.0 Seg Neutrophils % 64.9 Sodium Potassium Chloride Carbon Dioxide Anion Gap BUN Creatinine Est GFR ( Amer) Est GFR (MDRD) Non-Af Glucose Calcium Magnesium Creatine Kinase 75 CK-MB (CK-2) 2.12 Troponin I 0.021 TSH Urine Color Urine Appearance Urine pH Ur Specific Stamps Urine Protein Urine Glucose (UA) Urine Ketones Urine Blood Urine Nitrite Urine Bilirubin Urine Urobilinogen Ur Leukocyte Esterase Urine WBC (Auto) Urine RBC (Auto) U Hyaline Cast (Auto) Urine Mucus (Auto) Urine Ascorbic Acid 06/07/19 06/07/19 06/07/19 04:03 04:03 09:53 WBC RBC Hgb Hct MCV MCH MCHC RDW Plt Count Lymph % (Auto) Wells % (Auto) Eos % (Auto) Baso % (Auto) Absolute Neuts (auto) Absolute Lymphs (auto) Absolute Monos (auto) Absolute Eos (auto) Absolute Basos (auto) Seg Neutrophils % Sodium Potassium Chloride Carbon Dioxide Anion Gap BUN Creatinine Est GFR ( Amer) Est GFR (MDRD) Non-Af Glucose Calcium Magnesium 2.0 Creatine Kinase 67 CK-MB (CK-2) Troponin I TSH 3.19 Urine Color Urine Appearance Urine pH Ur Specific Stamps Urine Protein Urine Glucose (UA) Urine Ketones Urine Blood Urine Nitrite Urine Bilirubin Urine Urobilinogen Ur Leukocyte Esterase Urine WBC (Auto) Urine RBC (Auto) U Hyaline Cast (Auto) Urine Mucus (Auto) Urine Ascorbic Acid 06/07/19 09:53 WBC RBC Hgb Hct MCV MCH MCHC RDW Plt Count Lymph % (Auto) Wells % (Auto) Eos % (Auto) Baso % (Auto) Absolute Neuts (auto) Absolute Lymphs (auto) Absolute Monos (auto) Absolute Eos (auto) Absolute Basos (auto) Seg Neutrophils % Sodium Potassium Chloride Carbon Dioxide Anion Gap BUN Creatinine Est GFR ( Amer) Est GFR (MDRD) Non-Af Glucose Calcium Magnesium Creatine Kinase CK-MB (CK-2) 1.98 Troponin I 0.017 TSH Urine Color Urine Appearance Urine pH Ur Specific Stamps Urine Protein Urine Glucose (UA) Urine Ketones Urine Blood Urine Nitrite Urine Bilirubin Urine Urobilinogen Ur Leukocyte Esterase Urine WBC (Auto) Urine RBC (Auto) U Hyaline Cast (Auto) Urine Mucus (Auto) Urine Ascorbic Acid Chest X-Ray 06/06/19 19:53 IMPRESSION: No evidence of acute cardiopulmonary disease. Head CT 06/06/19 21:14 IMPRESSION: No acute intracranial abnormality. Mild chronic microvascular ischemic change with [id number] generalized atrophy. EKG: [Interpretation by me]. 06/06/2019: Sinus rhythm with left bundle branch block pattern. 06/07/2019: Sinus rhythm with PVCs and left bundle branch block pattern. Patient's tests in the office. 04/05/2019 echo report: Normal left ventricle chamber size. No LVH normal LVEF of 60%. There is grade 1/mild diastolic dysfunction. There is mild to moderate aortic valve stenosis. With mild aortic regurgitation. There is trace mitral regurgitation and trace tricuspid regurgitation. There is no pulmonary hypertension. 12/20/2017.: IV Lexiscan Cardiolite stress test: Showed medium perfusion abnormality of severe intensity in the basal inferior wall on the stress images with normalization of the rest images suggestive of reversible ischemia. He also had abnormal 3 times daily ratio 1.31. The patient treated medically and has not had anginal symptoms or heart failure. IMPRESSION/RECOMMENDATION: 1. Brief episode of CPR. This most likely secondary to the patient falling asleep with his chin on his chest causing airway obstruction and respiratory failure due to hypoxia causing respiratory and then cardiac arrest. Would recommend continue the patient's CPAP at night. We will get up nocturnal oximetry to make sure that the CPAP is functioning normally. So far no evidence of elevation of troponin. Later would recommend that the patient have an echocardiogram and a IV Lexiscan Cardiolite stress test. 2. Coronary artery disease. History of coronary artery stents. No anginal symptoms. No evidence of [place] by enzymes unfortunately patient has left bundle branch block pattern. We will repeat the patient's IV Lexiscan Cardiolite stress test. This can be done as an outpatient. 3. Obstructive sleep apnea on CPAP: The patient needs to have a CPAP titration retested. 4. Hypertension: Blood pressure seems to be well controlled. Continue current medication. 5. Brief episode of bradycardia post CPR. Would recommend getting a 30-day event monitor to make sure that the patient does have does not have an arrhythmogenic cause for the patient's need for CPR. Would lower the patient's dosage of Toprol to 75 mg p.o. daily. 6. Aortic stenosis: Mild to moderate aortic stenosis with mild aortic regurgitation. In spite of his echo being done less than 3 months ago would recommend repeat the echo to see if there is any progression of his aortic stenosis or if any damage or deterioration of LV function causing the patient's to have CPR. 7. Chronic kidney disease stage III. Avoid nephrotoxic drugs. The patient is 3 set of cardiac enzymes are negative then would recommend that the patient be discharged home will arrange follow-up 30-day event monitor and IV Lexiscan Cardiolite and a echocardiogram as an outpatient. Medications reviewed. Medical regimen and management plan discussed with Dr. Alves. Discussed with the patient and patient's son also. Medical decision making is of high complexity. 60 minutes spent with patient with more than 50% of time spent in direct patient care. Will follow 4.
[2019-06-07] MEDS: ATORVASTATIN CALCIUM 10 MG TABLET PO SCH (21:26)
[2019-06-07] MEDS: ASPIRIN 81 MG TABLET, CHEWABLE PO SCH (21:26)
[2019-06-07] MEDS ORDERED: (PENDING PHARMACY ID) (Pitavastatin Calcium [Livalo] 2 MG) PO SCH (22:00)
--- NOTE | 2019-06-07 23:30 | EKG REPORT ---
SEVERITY:- ABNORMAL ECG - SINUS RHYTHM VENTRICULAR PREMATURE COMPLEX FIRST DEGREE AV BLOCK LEFT BUNDLE BRANCH BLOCK : Confirmed by: Amandeep Wiggins 07-Jun-2019 23:30:08
--- NOTE | 2019-06-07 23:32 | EKG REPORT ---
SEVERITY:- ABNORMAL ECG - SINUS RHYTHM FIRST DEGREE AV BLOCK LEFT BUNDLE BRANCH BLOCK : Confirmed by: Amandeep Wiggins 07-Jun-2019 23:30:35
[2019-06-08 05:07] LABS: ABSOLUTE EOSINOPHILS # (AUTO) 0.2 10^3/uL (0.0-0.6); ABSOLUTE LYMPHOCYTES (AUTO) 1.2 10^3/uL (0.5-4.7); ABSOLUTE MONOCYTES (AUTO) 0.9 10^3/uL (0.1-1.4); ABSOLUTE NEUT (AUTO) 4.3 10^3/uL (1.7-8.2); BASOPHILS % (AUTO) 0.6 % (0-2); EOSINOPHILS % (AUTO) 2.5 % (0-6); HEMATOCRIT 33.3 % (37.9-51.0); HEMOGLOBIN 11.3 g/dL (13.5-17.0); LYMPHOCYTES % (AUTO) 18.7 % (13-45); MEAN CORPUSCULAR HEMOGLOBIN 30.4 pg (27.0-33.4); MEAN CORPUSCULAR VOLUME 89 fl (80-97); MONOCYTES % (AUTO) 13.7 % (3-13); PLATELET COUNT 179 10^3/uL (150-450); RED BLOOD COUNT 3.72 10^6/uL (4.35-5.55); RED CELL DISTRIBUTION WIDTH 13.7 % (11.5-14.0); SEGMENTED NEUTROPHILS % (AUTO) 64.5 % (42-78); TOTAL CELLS COUNTED % (AUTO) 100 %; WHITE BLOOD COUNT 6.6 10^3/uL (4.0-10.5)
[2019-06-08] MEDS: ENOXAPARIN SODIUM INJ 30 MG/0.3 ML DISP.SYRIN SUBCUT SCH (09:07)
[2019-06-08] MEDS: FAMOTIDINE 20 MG TABLET PO SCH ×2 (09:07→21:34)
[2019-06-08] MEDS: LOSARTAN POTASSIUM 50 MG TABLET PO SCH ×2 (09:07→17:31)
[2019-06-08] MEDS: TAMSULOSIN HCL 0.4 MG CAP.SR.24H PO SCH (09:07)
[2019-06-08] MEDS: BUSPIRONE HCL 10 MG TABLET PO SCH ×2 (09:07→17:31)
[2019-06-08] MEDS: CLOPIDOGREL BISULFATE 75 MG TABLET PO SCH (09:07)
[2019-06-08] MEDS: DULOXETINE HCL 30 MG CAPSULE.DR PO SCH (09:07)
[2019-06-08] MEDS: ISOSORBIDE MONONITRATE 30 MG TAB.ER.24H PO SCH (09:07)
--- NOTE | 2019-06-08 11:02 | PDOC PROGRESS REPORT ---
Subjective Progress Note for:: 06/08/19 Subjective:: Patient is currently doing well Patient's denied any chest pain no short of breath Patient's pulse ox is all stable about 90% Patient is currently still hold the beta-kellee heart rate is all stable Patient seen by the cardiology Dr. MARTIN currently all stable Reason For Visit: SYNCOPLA,BRADYCARDIA Physical Exam Vital Signs: Temp Pulse Resp BP Pulse Ox 97.7 F 78 17 142/86 H 97 06/08/19 08:21 06/08/19 08:21 06/08/19 08:21 06/08/19 08:21 06/08/19 08:21 Pulse Oximeter Nocturnal Start: 06/07/19 18:00 Freq: RTQ4 Status: Complete Protocol: Document 06/08/19 04:00 PMU (Rec: 06/08/19 05:57 PMU [id number]) Nocturnal Pulse Oximetry Equipment Usage Equipment in Use Oxygen Delivery Method (includes room CPAP-From Home air) O2 Sat by Pulse Oximetry (92-100) 96 Continuous SpO2 Machine # [id number] Intake & Output 06/07/19 06/08/19 06/09/19 06:59 06:59 06:59 Intake Total 0 1908 Output Total 500 1310 Balance -500 598 Weight 99.7 kg 101.6 kg General appearance: PRESENT: no acute distress, well-developed, well-nourished Head exam: PRESENT: atraumatic, normocephalic Eye exam: PRESENT: conjunctiva pink, EOMI, PERRLA. ABSENT: scleral icterus Ear exam: PRESENT: normal external ear exam Mouth exam: PRESENT: moist, tongue midline Neck exam: PRESENT: full ROM. ABSENT: carotid bruit, JVD, lymphadenopathy, thyromegaly Respiratory exam: PRESENT: clear to auscultation braden Cardiovascular exam: PRESENT: RRR. ABSENT: diastolic murmur, rubs, systolic murmur Pulses: PRESENT: normal dorsalis pedis pul, +2 pedal pulses bilateral Vascular exam: PRESENT: normal capillary refill GI/Abdominal exam: PRESENT: normal bowel sounds, soft. ABSENT: distended, guarding, mass, organolmegaly, rebound, tenderness Rectal exam: PRESENT: deferred Extremities exam: ABSENT: pedal edema Musculoskeletal exam: PRESENT: ambulatory Neurological exam: PRESENT: alert, awake, oriented to person, oriented to place, oriented to time, oriented to situation, CN II-XII grossly intact. ABSENT: motor sensory deficit Psychiatric exam: PRESENT: appropriate affect, normal mood. ABSENT: homicidal ideation, suicidal ideation Skin exam: PRESENT: dry, intact, warm. ABSENT: cyanosis, rash Results Laboratory Results: 06/08/19 04:29 06/06/19 21:45 06/08/19 04:29 WBC 6.6 RBC 3.72 L Hgb 11.3 L Hct 33.3 L MCV 89 MCH 30.4 MCHC 34.0 RDW 13.7 Plt Count 179 Seg Neutrophils % 64.5 06/06/19 06/06/19 06/06/19 20:07 21:45 21:45 Creatine Kinase 77 CK-MB (CK-2) 2.22 Troponin I < 0.012 0.016 06/07/19 06/07/19 06/07/19 04:03 04:03 09:53 Creatine Kinase 75 67 CK-MB (CK-2) 2.12 Troponin I 0.021 06/07/19 09:53 Creatine Kinase CK-MB (CK-2) 1.98 Troponin I 0.017 Impressions: Chest X-Ray 06/06/19 19:53 IMPRESSION: No evidence of acute cardiopulmonary disease. Head CT 06/06/19 21:14 IMPRESSION: No acute intracranial abnormality. Mild chronic microvascular ischemic change with [id number] generalized atrophy. TECHNICAL DOCUMENTATION: Quality ID # [id number]: Final reports with documentation of one or more dose reduction techniques (e.g., Automated exposure control, adjustment of the mA and/or kV according to patient size, use of iterative reconstruction technique) copyright 2011 [employer]- All Rights Reserved Assessment & Plan - Diagnosis (1) Altered mental status Qualifiers: Altered mental status type: unspecified Qualified Code(s): R41.82 - Altered mental status, unspecified Is this a current diagnosis for this admission?: Yes Plan: Currently all resolved (2) Coronary artery disease Qualifiers: Coronary Disease-Associated Artery/Lesion type: [place] artery Associated angina: without angina Is this a current diagnosis for this admission?: Yes Plan: Currently all stable per cardiology (3) Chronic kidney disease Qualifiers: Chronic kidney disease stage: stage 3 (moderate) Qualified Code(s): N18.3 - Chronic kidney disease, stage 3 (moderate) Is this a current diagnosis for this admission?: Yes Plan: Well-controlled patient see Dr. Elkins as outpatient (4) Hypertension Qualifiers: Hypertension type: essential hypertension Qualified Code(s): I10 - Essential (primary) hypertension Is this a current diagnosis for this admission?: Yes Plan: Still continues to hold the beta-kellee and the blood pressure is all stable (5) Sleep apnea Qualifiers: Sleep apnea type: unspecified type Qualified Code(s): G47.30 - Sleep apnea, unspecified Is this a current diagnosis for this admission?: Yes Plan: Uses CPAP (6) Bradycardia Is this a current diagnosis for this admission?: Yes - Time Time Spent with patient: 15-24 minutes Level of Care: IMCU Medications reviewed and adjusted accordingly: Yes Anticipated discharge: Home with Homehealth Within: within 24 hours - Plan Summary Plan Summary: Rest the current medications
[2019-06-08] MEDS: METOPROLOL SUCCINATE 50 MG TAB.SR.24H PO SCH (13:23)
--- NOTE | 2019-06-08 17:19 | Progress Note ---
Provider Note Provider Note: CARDIOLOGY PROGRESS NOTE by Dr. Cele Benton on 06/08/2019. SUBJECTIVE: The patient is nocturnal oximetry did not show any hypoxemia. The O2 sat levels were as in the mid 90s. The patient is slightly tachycardic since his beta-kellee has been held. He has no chest pain or discomfort. He has no leg edema. There is no PND orthopnea. There is no shortness of breath. There is no cough or sputum production. There is no atrial or ventricular arrhythmias seen. PHYSICAL EXAMINATION: The patient is mildly obese. He is well-groomed in no acute distress. Selected Entries 06/08/19 06/08/19 08:21 12:08 Temperature 97.7 F 98.0 F Temperature Oral Oral Source Pulse Rate 78 115 H Respiratory 17 16 Rate Blood Pressure 142/86 H Blood Pressure 104 Mean BP Location Right Arm Right Arm BP Position Supine Supine O2 Sat by Pulse 97 95 Oximetry Oxygen Delivery Cpap Room Air Method HEAD: Is atraumatic normocephalic. EYES: Pupils are equal round regular reactive light accommodation. Extraocular movements are normal. There is no conjunctival pallor. There is no scleral icterus. EARS: External auditory canals are clear. The tympanic membranes are intact. NOSE: There is no deviated nasal septum. There is no inflammation of the inflamed nasal mucous membrane. MOUTH: Mucous membranes of mouth are moist. Tongue is moist. There is no ulcers. THROAT: There is no redness of the oropharynx. There is no exudates. SKIN: There is no skin rashes. The skin no skin lesions. There is no petechia or ecchymosis. NECK: Is supple. There is no JVD. Carotids are equal there is no bruit there is no lymphadenopathy. There is no goiter. There is no accessory muscles of respiration use. Trachea central. LUNGS: Is clear to auscultation percussion without any rhonchi rales or wheezing. There is no chest wall tenderness. HEART: S1-S2 is heard. There is murmur of aortic stenosis heard with preserved A2. There is questionable faint aortic regurgitation murmur. There is no thrill felt in the aortic area. There is no S3 gallop. There is no S4 gallop. There is systolic murmur at the left sternal border and the apex there is no rub. ABDOMEN: Is mildly obese. Nontender. There is no paraspinal megaly. Bowel sounds are well heard. EXTREMITIES femorals are well felt. There is no femoral bruits. Leg pulses are well felt. There is no pedal edema. There is no DVT or cellulitis. There is no cyanosis or clubbing HISTORIAN RESEARCH ASSISTANT: Patient is conscious awake alert oriented x3 with no focal deficits. PSYCHIATRIC: Patient judgment insight are intact. His affect is normal. Labs- All tests 24 hr 06/08/19 04:29 WBC 6.6 RBC 3.72 L Hgb 11.3 L Hct 33.3 L MCV 89 MCH 30.4 MCHC 34.0 RDW 13.7 Plt Count 179 Lymph % (Auto) 18.7 [place] % (Auto) 13.7 H Eos % (Auto) 2.5 Baso % (Auto) 0.6 Absolute Neuts (auto) 4.3 Absolute Lymphs (auto) 1.2 Absolute Monos (auto) 0.9 Absolute Eos (auto) 0.2 Absolute Basos (auto) 0.0 Seg Neutrophils % 64.5 Chest X-Ray 06/06/19 19:53 IMPRESSION: No evidence of acute cardiopulmonary disease. Head CT 06/06/19 21:14 IMPRESSION: No acute intracranial abnormality. Mild chronic microvascular ischemic change with [id number] generalized atrophy. TECHNICAL DOCUMENTATION: Quality ID # 436: Final reports with documentation of one or more dose reduction techniques (e.g., Automated exposure control, adjustment of the mA and/or kV according to patient size, use of iterative reconstruction technique) copyright 2011 [employer]- All Rights Reserved IMPRESSION/RECOMMENDATION: 1. Brief episode of CPR. This most likely secondary to the patient falling asleep with his chin on his chest causing airway obstruction and respiratory failure due to hypoxia causing respiratory and then cardiac arrest. Would recommend continue the patient's CPAP at night. We will get up nocturnal oximetry to make sure that the CPAP is functioning normally. So far no evidence of elevation of troponin. Later would recommend that the patient have an echocardiogram and a IV Lexiscan Cardiolite stress test. 2. Coronary artery disease. History of coronary artery stents. No anginal symptoms. No evidence of [place] by enzymes unfortunately patient has left bundle branch block pattern. We will repeat the patient's IV Lexiscan Cardiolite stress test. This can be done as an outpatient. 3. Obstructive sleep apnea on CPAP: The patient needs to have a CPAP titration retested. 4. Hypertension: Blood pressure seems to be well controlled. Continue current medication. 5. Brief episode of bradycardia post CPR. Would recommend getting a 30-day event monitor to make sure that the patient does have does not have an arrhythmogenic cause for the patient's need for CPR. Would lower the patient's dosage of Toprol to 75 mg p.o. daily. 6. Aortic stenosis: Mild to moderate aortic stenosis with mild aortic regurgitation. In spite of his echo being done less than 3 months ago would recommend repeat the echo to see if there is any progression of his aortic stenosis or if any damage or deterioration of LV function causing the patient's to have CPR. 7. Chronic kidney disease stage III. Avoid nephrotoxic drugs. 8. Sinus tachycardia. The patient's bradycardia is resolved. Will restart the patient on Toprol-XL 50 mg p.o. every morning and 25 mg p.o. every afternoon. This is a decrease from the 100 mg of Toprol-XL daily. The patient is 3 set of cardiac enzymes are negative then would recommend that the patient be discharged home will arrange follow-up 30-day event monitor and IV Lexiscan Cardiolite and a echocardiogram as an outpatient. Medications reviewed. Medical regimen and management plan discussed with Dr. Jose M lr. Discussed with the patient and patient's son also. Medical decision making is of high complexity, due to need for adjusting the patient's beta- kellee dosage.. 60 minutes spent with patient with more than 50% of time spent in direct patient care. Will follow
[2019-06-08] MEDS: ATORVASTATIN CALCIUM 10 MG TABLET PO SCH (21:34)
[2019-06-08] MEDS: ASPIRIN 81 MG TABLET, CHEWABLE PO SCH (21:34)
[2019-06-08] MEDS ORDERED: METOPROLOL SUCCINATE 25 MG TAB.SR.24H PO SCH (22:00)
--- NOTE | 2019-06-09 00:18 | EKG REPORT ---
SEVERITY:- ABNORMAL ECG - SINUS OR ECTOPIC ATRIAL RHYTHM LEFT BUNDLE BRANCH BLOCK : Confirmed by: Amandeep Wiggins 09-Jun-2019 00:16:31
[2019-06-09 05:37] LABS: ABSOLUTE EOSINOPHILS # (AUTO) 0.2 10^3/uL (0.0-0.6); ABSOLUTE LYMPHOCYTES (AUTO) 1.4 10^3/uL (0.5-4.7); ABSOLUTE MONOCYTES (AUTO) 0.9 10^3/uL (0.1-1.4); ABSOLUTE NEUT (AUTO) 4.8 10^3/uL (1.7-8.2); BASOPHILS % (AUTO) 0.4 % (0-2); HEMATOCRIT 33.4 % (37.9-51.0); HEMOGLOBIN 11.1 g/dL (13.5-17.0); LYMPHOCYTES % (AUTO) 18.6 % (13-45); MEAN CORPUSCULAR HGB CONC 33.3 g/dL (32.0-36.0); MEAN CORPUSCULAR VOLUME 90 fl (80-97); MONOCYTES % (AUTO) 12.1 % (3-13); PLATELET COUNT 179 10^3/uL (150-450); RED BLOOD COUNT 3.72 10^6/uL (4.35-5.55); RED CELL DISTRIBUTION WIDTH 13.8 % (11.5-14.0); SEGMENTED NEUTROPHILS % (AUTO) 65.9 % (42-78); TOTAL CELLS COUNTED % (AUTO) 100 %; WHITE BLOOD COUNT 7.3 10^3/uL (4.0-10.5)
[2019-06-09] MEDS ORDERED: METOPROLOL SUCCINATE 50 MG TAB.SR.24H PO SCH (08:00)
[2019-06-09] MEDS: LOSARTAN POTASSIUM 50 MG TABLET PO SCH ×2 (09:38→17:15)
[2019-06-09] MEDS: FAMOTIDINE 20 MG TABLET PO SCH (09:38)
[2019-06-09] MEDS: TAMSULOSIN HCL 0.4 MG CAP.SR.24H PO SCH (09:38)
[2019-06-09] MEDS: METOPROLOL SUCCINATE 50 MG TAB.SR.24H PO SCH (09:38)
[2019-06-09] MEDS: CLOPIDOGREL BISULFATE 75 MG TABLET PO SCH (09:38)
[2019-06-09] MEDS: BUSPIRONE HCL 10 MG TABLET PO SCH ×2 (09:38→17:15)
[2019-06-09] MEDS: ENOXAPARIN SODIUM INJ 30 MG/0.3 ML DISP.SYRIN SUBCUT SCH (09:39)
[2019-06-09] MEDS: ISOSORBIDE MONONITRATE 30 MG TAB.ER.24H PO SCH (09:39)
[2019-06-09] MEDS: DULOXETINE HCL 30 MG CAPSULE.DR PO SCH (09:39)
[2019-06-09 17:56] VITALS: BP 172/109
--- NOTE | 2019-06-09 18:20 | Progress Note ---
Provider Note Provider Note: CARDIOLOGY PROGRESS NOTE by Dr. Cele Palacio on 06/09/2019. SUBJECTIVE: There is no further cardiac or respiratory arrest. His bradycardia earlier is resolved. He is tolerating the beta-blockers. He has no shortness of breath or chest pain or discomfort. There is no PND orthopnea or leg edema. There is no arrhythmia seen on the monitor. There is no TIA CVA symptoms. PHYSICAL EXAMINATION: The patient is mildly obese. In no acute distress. Selected Entries 06/09/19 11:59 Temperature 98.0 F Temperature Oral Source Pulse Rate 74 Respiratory 18 Rate Blood Pressure 127/76 H Blood Pressure 93 Mean BP Location Right Arm BP Position Supine O2 Sat by Pulse 92 Oximetry Oxygen Delivery Room Air Method HEAD: Is atraumatic normocephalic. EYES: Pupils are equal round regular reactive light accommodation. Extraocular movements are normal. There is no conjunctival pallor. There is no scleral icterus. EARS: External auditory canals are clear. The tympanic membranes are intact. NOSE: There is no deviated nasal septum. There is no inflammation of the inflamed nasal mucous membrane. MOUTH: Mucous membranes of mouth are moist. Tongue is moist. There is no ulcers. THROAT: There is no redness of the oropharynx. There is no exudates. SKIN: There is no skin rashes. The skin no skin lesions. There is no petechia or ecchymosis. NECK: Is supple. There is no JVD. Carotids are equal there is no bruit there is no lymphadenopathy. There is no goiter. There is no accessory muscles of respiration use. Trachea central. LUNGS: Is clear to auscultation percussion without any rhonchi rales or wheezing. There is no chest wall tenderness. HEART: S1-S2 is heard. There is murmur of aortic stenosis heard with preserved A2. There is questionable faint aortic regurgitation murmur. There is no thrill felt in the aortic area. There is no S3 gallop. There is no S4 gallop. There is systolic murmur at the left sternal border and the apex there is no rub. ABDOMEN: Is mildly obese. Nontender. There is no paraspinal megaly. Bowel sounds are well heard. EXTREMITIES femorals are well felt. There is no femoral bruits. Leg pulses are well felt. There is no pedal edema. There is no DVT or cellulitis. There is no cyanosis or clubbing HUMAN RESOURCES PROFESSIONAL: Patient is conscious awake alert oriented x3 with no focal deficits. PSYCHIATRIC: Patient judgment insight are intact. His affect is normal. Labs- All tests 24 hr 06/09/19 04:44 WBC 7.3 RBC 3.72 L Hgb 11.1 L Hct 33.4 L MCV 90 MCH 30.0 MCHC 33.3 RDW 13.8 Plt Count 179 Lymph % (Auto) 18.6 [place] % (Auto) 12.1 Eos % (Auto) 3.0 Baso % (Auto) 0.4 Absolute Neuts (auto) 4.8 Absolute Lymphs (auto) 1.4 Absolute Monos (auto) 0.9 Absolute Eos (auto) 0.2 Absolute Basos (auto) 0.0 Seg Neutrophils % 65.9 Chest X-Ray 06/06/19 19:53 IMPRESSION: No evidence of acute cardiopulmonary disease. Head CT 06/06/19 21:14 IMPRESSION: No acute intracranial abnormality. Mild chronic microvascular ischemic change with [id number] generalized atrophy. TECHNICAL DOCUMENTATION: Quality ID # 436: Final reports with documentation of one or more dose reduction techniques (e.g., Automated exposure control, adjustment of the mA and/or kV according to patient size, use of iterative reconstruction technique) IMPRESSION/RECOMMENDATION: 1. Pulmonary and cardiac arrest. Brief episode of CPR. This most likely secondary to the patient falling asleep with his chin on his chest causing airway obstruction and respiratory failure due to hypoxia causing respiratory and then cardiac arrest. Would recommend continue the patient's CPAP at night. We will get up nocturnal oximetry to make sure that the CPAP is functioning normally. So far no evidence of elevation of troponin. Later would recommend that the patient have an echocardiogram and a IV Lexiscan Cardiolite stress test. 2. Coronary artery disease. History of coronary artery stents. No anginal symptoms. No evidence of [place] by enzymes unfortunately patient has left bundle branch block pattern. We will repeat the patient's IV Lexiscan Cardiolite stress test. This can be done as an outpatient. 3. Obstructive sleep apnea on CPAP: The patient needs to have a CPAP titration retested. 4. Hypertension: Blood pressure seems to be well controlled. Continue current medication. 5. Brief episode of bradycardia post CPR. Would recommend getting a 30-day event monitor to make sure that the patient does have does not have an arrhythmogenic cause for the patient's need for CPR. Would lower the patient's dosage of Toprol to 75 mg p.o. daily. 6. Aortic stenosis: Mild to moderate aortic stenosis with mild aortic regurgitation. In spite of his echo being done less than 3 months ago would recommend repeat the echo to see if there is any progression of his aortic stenosis or if any damage or deterioration of LV function causing the patient's to have CPR. 7. Chronic kidney disease stage III. Avoid nephrotoxic drugs. 8. Sinus tachycardia. The patient's bradycardia is resolved. Will restart the patient on Toprol-XL 50 mg p.o. every morning and 25 mg p.o. every afternoon. This is a decrease from the 100 mg of Toprol-XL daily. The patient's 3 set of cardiac enzymes are negative then would recommend that the patient be discharged home will arrange follow-up 30-day event monitor and IV Lexiscan Cardiolite and a echocardiogram as an outpatient. Medications reviewed. Medical regimen and management plan discussed with Dr. Alves. Discussed with the patient and patient's son also. Medical decision making is of moderate complexity, due to need for adjusting the patient's beta- kellee dosage.. 0 minutes spent with patient with more than 50% of time spent in direct patient care will sign off. Will arrange a 30-day event monitor as an outpatient and also get a repeat stress test and a echocardiogram. This has been discussed with the patient and patient's family.
--- NOTE | 2019-06-09 21:20 | PDOC DISCHARGE SUMMARY ---
Impression - Admit/DC Date/PCP Admission Date/Primary Care Provider: 06/06/19 22:03 SAFIA HUMMEL MD Discharge Date: 06/09/19 - Discharge Diagnosis (1) Encephalopathy, unspecified Is this a current diagnosis for this admission?: Yes (2) Sinus bradycardia Is this a current diagnosis for this admission?: Yes (3) Chronic kidney disease, stage 3 Is this a current diagnosis for this admission?: Yes (4) Aortic valve stenosis Is this a current diagnosis for this admission?: Yes (5) Coronary artery disease Is this a current diagnosis for this admission?: Yes (6) Sleep apnea Is this a current diagnosis for this admission?: Yes - Additional Information Resuscitation Status: Full Code Discharge Activity: Activity As Tolerated, Balance Activity w/Rest, Energy Conservation Referrals: Nazia RAMIREZ MD [ACTIVE STAFF] - Follow up as needed Prescriptions: Metoprolol Succinate [Toprol Xl 50 mg Tab.sr] 50 mg PO QAM #90 tab.sr.24h Home Medications: Aspirin [Aspirin 81 mg Chewable Tablet] 81 mg PO QHS 11/05/11 Clopidogrel Bisulfate [Plavix 75 mg Tablet] 75 mg PO DAILY 11/05/11 Pitavastatin Calcium [Livalo] 2 mg PO QHS 11/06/11 Buspirone HCl 15 mg PO BID 06/07/19 Duloxetine HCl 60 mg PO DAILY 06/07/19 Furosemide [Lasix 20 mg Tablet] 20 mg PO DAILY 06/07/19 Furosemide [Lasix 40 mg Tablet] 40 mg PO MOFR@1000 PRN 06/07/19 Olmesartan Medoxomil 40 mg PO DAILY 06/07/19 Penfield-3/Dha/Epa/Fish Oil [Fish Oil 1,000 mg Softgel] 1,000 mg PO QHS 06/07/19 Tamsulosin HCl [Flomax] 0.4 mg PO DAILY 06/07/19 Metoprolol Succinate [Toprol Xl 50 mg Tab.sr] 50 mg PO QAM #90 tab.sr.24h 06/09/19 History of Present Illiness History of Present Illness: LESA COLÓN is a 88 year old male, The patient's son states that when he went to see his father the father was sitting in a chair with his face down and was not breathing and he said that he listen to his heart although he did not feel for a pulse. He said when he listen to the chest wall there was no heart sounds. He did a brief CPR and called the paramedics. He also clearly states that he found his father's head slumped on the chest and when he lifted his the chin up and straighten the patient's neck the patient had a explosive inspiration and subsequently started breathing on his own. When the EMT came the patient was bradycardic and was slightly confused and was given fluids and at present the patient is awake alert oriented x3. There is no fecal or urinary incontinence. There is no witnessed seizure activity. There is no focal deficits. The patient had no chest pain or discomfort. There was no shortness of breath or palpitations. At present the patient is awake alert oriented x3 with no focal deficits. Hospital Course Hospital Course: Patient was found unresponsive at home, he was brought to the emergency room for evaluation, he was admitted, he was found to be bradycardic, he was seen by Dr. Can cardiology. The cause of the stuporous state was not exactly clear many potential diagnoses were entertained including, sleep apnea, deep sleep, unlikely to be seizure there was no witnesed tonic-clonic activity, he has a history of aortic valve stenosis, there is no evidence of hemodynamic collapse that would suggest hypoperfusion. Physical Exam Vital Signs: Temp Pulse Resp BP Pulse Ox 98.0 F 81 18 172/109 H 92 06/09/19 17:53 06/09/19 17:53 06/09/19 17:53 06/09/19 17:53 06/09/19 17:53 Pulse Oximeter Nocturnal Start: 06/07/19 18:00 Freq: RTQ4 Status: Complete Protocol: Document 06/08/19 04:00 PMU (Rec: 06/08/19 05:57 PMU [id number]) Nocturnal Pulse Oximetry Equipment Usage Equipment in Use Oxygen Delivery Method (includes room CPAP-From Home air) O2 Sat by Pulse Oximetry (92-100) 96 Continuous SpO2 Machine # [id number] Intake & Output 06/08/19 06/09/19 06/10/19 06:59 06:59 06:59 Intake Total 1908 1190 1080 Output Total 1310 900 100 Balance 598 290 980 Weight 101.6 kg 100.9 kg General appearance: PRESENT: no acute distress Eye exam: PRESENT: PERRLA Respiratory exam: PRESENT: clear to auscultation braden Cardiovascular exam: PRESENT: +S1, +S2 GI/Abdominal exam: PRESENT: soft Neurological exam: PRESENT: alert, CN II-XII grossly intact Results Laboratory Results: WBC 7.3 10^3/uL (4.0-10.5) 06/09/19 04:44 RBC 3.72 10^6/uL (4.35-5.55) L 06/09/19 04:44 Hgb 11.1 g/dL (13.5-17.0) L 06/09/19 04:44 Hct 33.4 % (37.9-51.0) L 06/09/19 04:44 MCV 90 fl (80-97) 06/09/19 04:44 MCH 30.0 pg (27.0-33.4) 06/09/19 04:44 MCHC 33.3 g/dL (32.0-36.0) 06/09/19 04:44 RDW 13.8 % (11.5-14.0) 06/09/19 04:44 Plt Count 179 10^3/uL (150-450) 06/09/19 04:44 Lymph % (Auto) 18.6 % (13-45) 06/09/19 04:44 [place] % (Auto) 12.1 % (3-13) 06/09/19 04:44 Eos % (Auto) 3.0 % (0-6) 06/09/19 04:44 Baso % (Auto) 0.4 % (0-2) 06/09/19 04:44 Absolute Neuts (auto) 4.8 10^3/uL (1.7-8.2) 06/09/19 04:44 Absolute Lymphs (auto) 1.4 10^3/uL (0.5-4.7) 06/09/19 04:44 Absolute Monos (auto) 0.9 10^3/uL (0.1-1.4) 06/09/19 04:44 Absolute Eos (auto) 0.2 10^3/uL (0.0-0.6) 06/09/19 04:44 Absolute Basos (auto) 0.0 10^3/uL (0.0-0.2) 06/09/19 04:44 Seg Neutrophils % 65.9 % (42-78) 06/09/19 04:44 PT 12.9 SEC (11.4-15.4) 06/06/19 17:20 INR 0.97 06/06/19 17:20 Sodium 134.6 mmol/L (137-145) L 06/06/19 21:45 Potassium 5.1 mmol/L (3.6-5.0) H 06/06/19 21:45 Chloride 98 mmol/L (98-107) 06/06/19 21:45 Carbon Dioxide 23 mmol/L (22-30) 06/06/19 21:45 Anion Gap 14 (5-19) 06/06/19 21:45 BUN 36 mg/dL (7-20) H 06/06/19 21:45 Creatinine 1.57 mg/dL (0.52-1.25) H 06/06/19 21:45 Est GFR ( Amer) 51 (>60) L 06/06/19 21:45 Est GFR (MDRD) Non-Af 42 (>60) L 06/06/19 21:45 Glucose 96 mg/dL (75-110) 06/06/19 21:45 Calcium 9.4 mg/dL (8.4-10.2) 06/06/19 21:45 Magnesium 2.0 mg/dL (1.6-2.3) 06/07/19 04:03 Total Bilirubin 0.4 mg/dL (0.2-1.3) 06/06/19 17:20 Direct Bilirubin 0.3 mg/dL (0.0-0.4) 06/06/19 17:20 Neonat Total Bilirubin Not Reportable 06/06/19 17:20 Neonat Direct Bilirubin Not Reportable 06/06/19 17:20 Neonat Indirect Bili Not Reportable 06/06/19 17:20 AST 26 U/L (17-59) 06/06/19 17:20 ALT 16 U/L (<50) 06/06/19 17:20 Alkaline Phosphatase 70 U/L (38-126) 06/06/19 17:20 Creatine Kinase 67 U/L (55-170) 06/07/19 09:53 CK-MB (CK-2) 1.98 ng/mL (<4.55) 06/07/19 09:53 Troponin I 0.017 ng/mL 06/07/19 09:53 Total Protein 7.0 g/dL (6.3-8.2) 06/06/19 17:20 Albumin 4.0 g/dL (3.5-5.0) 06/06/19 17:20 TSH 3.19 uIU/mL (0.47-4.68) 06/07/19 04:03 Urine Color YELLOW 06/06/19 23:50 Urine Appearance CLEAR 06/06/19 23:50 Urine pH 5.0 (5.0-9.0) 06/06/19 23:50 Ur Specific Etters 1.010 06/06/19 23:50 Urine Protein NEGATIVE mg/dL (NEGATIVE) 06/06/19 23:50 Urine Glucose (UA) NEGATIVE mg/dL (NEGATIVE) 06/06/19 23:50 Urine Ketones NEGATIVE mg/dL (NEGATIVE) 06/06/19 23:50 Urine Blood NEGATIVE (NEGATIVE) 06/06/19 23:50 Urine Nitrite NEGATIVE (NEGATIVE) 06/06/19 23:50 Urine Bilirubin NEGATIVE (NEGATIVE) 06/06/19 23:50 Urine Urobilinogen NEGATIVE mg/dL (<2.0) 06/06/19 23:50 Ur Leukocyte Esterase NEGATIVE (NEGATIVE) 06/06/19 23:50 Urine WBC (Auto) 2 /HPF 06/06/19 23:50 Urine RBC (Auto) 1 /HPF 06/06/19 23:50 U Hyaline Cast (Auto) 12 /LPF 06/06/19 23:50 Urine Mucus (Auto) RARE /LPF 06/06/19 23:50 Urine Ascorbic Acid NEGATIVE (NEGATIVE) 06/06/19 23:50 06/06/19 06/06/19 06/07/19 20:07 21:45 04:03 CK-MB (CK-2) 2.22 2.12 Troponin I < 0.012 0.016 0.021 06/07/19 09:53 CK-MB (CK-2) 1.98 Troponin I 0.017 Impressions: Chest X-Ray 06/06/19 19:53 IMPRESSION: No evidence of acute cardiopulmonary disease. Head CT 06/06/19 21:14 IMPRESSION: No acute intracranial abnormality. Mild chronic microvascular ischemic change with [id number] generalized atrophy. TECHNICAL DOCUMENTATION: Quality ID # 436: Final reports with documentation of one or more dose reduction techniques (e.g., Automated exposure control, adjustment of the mA and/or kV according to patient size, use of iterative reconstruction technique) copyright 2011 [employer]- All Rights Reserved Stroke Is this a Stroke Patient?: No Acute Heart Failure - Is this a Heart Failure Patient?: No
== END 2019-06-09 18:26 | disposition home or self-care (01) ==
LOC: ER 17:09 → INTOOBSV 22:03 → EH 22:03 → 3N 06-07 02:14
PROVIDERS: ADMIT Internal Medicine; ATTEND Internal Medicine
DX: G93.40 Encephalopathy, unspecified (principal); R00.1 Bradycardia, unspecified; I12.9 Hypertensive chronic kidney disease with stage 1 through stage 4 chronic kidney disease, or unspecified chronic kidney disease; N18.3 Chronic kidney disease, stage 3 (moderate); I35.2 Nonrheumatic aortic (valve) stenosis with insufficiency; I46.9 Cardiac arrest, cause unspecified; I25.10 Atherosclerotic heart disease of native coronary artery without angina pectoris; G47.33 Obstructive sleep apnea (adult) (pediatric); E66.9 Obesity, unspecified; R01.1 Cardiac murmur, unspecified; I44.7 Left bundle-branch block, unspecified; F32.9 Major depressive disorder, single episode, unspecified; R00.0 Tachycardia, unspecified; I44.0 Atrioventricular block, first degree; Z79.82 Long term (current) use of aspirin; Z79.02 Long term (current) use of antithrombotics/antiplatelets; Z79.899 Other long term (current) drug therapy; Z95.5 Presence of coronary angioplasty implant and graft; Z90.49 Acquired absence of other specified parts of digestive tract; Z82.49 Family history of ischemic heart disease and other diseases of the circulatory system
CPT/HCPCS: 93005 ×3; 99285; 36415 ×4; 87040; 87086; 82553 ×2; 82550 ×2; 83735; 84443; 85025 ×4; 85610; 80053; 81001; 84484 ×2; 71045; 70450; 93010 ×3; 94762; A9270 ×29; J1650 ×3; J7030

== ENCOUNTER → 2019-07-17 | Outpatient (CLI) | payer MEDICARE ==
[2019-07-17 10:53] LABS: APPEARANCE,URINE CLEAR; BILIRUBIN,URINE NEGATIVE (NEGATIVE); COLOR,URINE STRAW; GLUCOSE, URINE NEGATIVE (NEGATIVE); KETONES,URINE NEGATIVE (NEGATIVE); LEUKOCYTE ESTERASE,URINE NEGATIVE (NEGATIVE); NITRITE,URINE NEGATIVE (NEGATIVE); PROTEIN,URINE NEGATIVE (NEGATIVE); URINE SPECIFIC GRAVITY 1.009; UROBILINOGEN,URINE NEGATIVE mg/dL (<2.0)
[2019-07-17 10:54] LABS: ADD MANUAL MICROSCOPIC YES
[2019-07-17 11:00] LABS: ABSOLUTE EOSINOPHILS # (AUTO) 0.3 10^3/uL (0.0-0.6); ABSOLUTE LYMPHOCYTES (AUTO) 1.3 10^3/uL (0.5-4.7); ABSOLUTE MONOCYTES (AUTO) 0.9 10^3/uL (0.1-1.4); ABSOLUTE NEUT (AUTO) 4.5 10^3/uL (1.7-8.2); BASOPHILS % (AUTO) 0.5 % (0-2); EOSINOPHILS % (AUTO) 3.8 % (0-6); HEMATOCRIT 35.9 % (37.9-51.0); HEMOGLOBIN 12.3 g/dL (13.5-17.0); MEAN CORPUSCULAR HEMOGLOBIN 30.7 pg (27.0-33.4); MEAN CORPUSCULAR HGB CONC 34.2 g/dL (32.0-36.0); MEAN CORPUSCULAR VOLUME 90 fl (80-97); MONOCYTES % (AUTO) 12.9 % (3-13); PLATELET COUNT 214 10^3/uL (150-450); SEGMENTED NEUTROPHILS % (AUTO) 64.8 % (42-78); TOTAL CELLS COUNTED % (AUTO) 100 %
[2019-07-17 11:04] LABS: BACTERIA,URINE TRACE /HPF
[2019-07-17 11:25] LABS: ALBUMIN 4.5 g/dL (3.5-5.0); ANION GAP 8 (5-19); BLOOD UREA NITROGEN 36 mg/dL (7-20); CALCIUM 9.7 mg/dL (8.4-10.2); CARBON DIOXIDE 29 mmol/L (22-30); CHLORIDE 101 mmol/L (98-107); GLUCOSE 101 mg/dL (75-110); PHOSPHORUS 4.1 mg/dL (2.5-4.5); POTASSIUM 5.8 mmol/L (3.6-5.0)
== END ==
LOC: OD 10:31
PROVIDERS: ATTEND Physician Assistant Medical
DX: I12.9 Hypertensive chronic kidney disease with stage 1 through stage 4 chronic kidney disease, or unspecified chronic kidney disease (principal); N18.3 Chronic kidney disease, stage 3 (moderate); R60.9 Edema, unspecified; E87.5 Hyperkalemia
CPT/HCPCS: 36415; 80069; 81001; 83970; 85025

== ENCOUNTER → 2019-07-21 | Outpatient (CLI) | payer MEDICARE | LOC: OD 08:00 | PROVIDERS: ATTEND Physician Assistant Medical | DX: E87.5 Hyperkalemia (principal) | CPT/HCPCS: 36415; 84132 ==

== ENCOUNTER → 2019-12-04 | Outpatient (CLI) | payer MEDICARE | LOC: OD 08:21 | PROVIDERS: ATTEND Physician Assistant Medical | DX: E87.5 Hyperkalemia (principal) | CPT/HCPCS: 36415; 84132 ==